=== PATIENT | male | born 1955 | race Caucasian/White ===

== ENCOUNTER 2016-12-13 09:07 | Day surgery (SDC) | payer OTHER ==
[~2016-12-13] VITALS: Ht 182.9 cm; Wt 91.8 kg
[~2016-12-13 09:07] MED LIST: AMIT10TA6 PO; ATOR40TA28 PO; LACT10SO75 PO; METO-296 PO; OMEP20 PO; RINGERS SOLUTION,LACTATED 500 ML IV ONE; SUCR1ORA5 PO; VITAD50000 PO
[2016-12-13] MEDS ORDERED: TETRACAINE HCL/PF 0.5% 4 ML OPHTHALMIC SOLUTION OD ONE (09:15)
[2016-12-13] MEDS ORDERED: CYCLOPENTOLATE HCL 2% 2 ML OPHTHALMIC SOLUTION ONE (09:20)
[2016-12-13] MEDS ORDERED: TETRACAINE HCL/PF 0.5% 4 ML OPHTHALMIC SOLUTION ONE (09:20)
[2016-12-13] MEDS ORDERED: DICLOFENAC SODIUM 0.1% 2.5 ML OPHTHALMIC SOLUTION ONE (09:20)
[2016-12-13] MEDS ORDERED: RINGERS SOLUTION,LACTATED 500 ML IV ONE (09:21)
[2016-12-13] MEDS ORDERED: PHENYLEPHRINE HCL 2.5% 2 ML OPHTHALMIC SOLUTION ONE (09:21)
[2016-12-13] MEDS ORDERED: MOXIFLOXACIN HCL 0.5% 3 ML OPHTHALMIC SOLUTION ONE (09:21)
[2016-12-13] MEDS: MOXIFLOXACIN HCL 0.5% 3 ML OPHTHALMIC SOLUTION OD SCH ×3 (09:52→10:15)
[2016-12-13] MEDS: PHENYLEPHRINE HCL 2.5% 2 ML OPHTHALMIC SOLUTION OD SCH ×3 (09:52→10:07)
[2016-12-13] MEDS: CYCLOPENTOLATE HCL 2% 2 ML OPHTHALMIC SOLUTION OD SCH ×3 (09:52→10:07)
[2016-12-13] MEDS: DICLOFENAC SODIUM 0.1% 2.5 ML OPHTHALMIC SOLUTION OD SCH ×3 (09:53→10:15)
[2016-12-13] MEDS ORDERED: ACETAMINOPHEN/CODEINE 300-30 MG TABLET PO PRN (11:15)
[2016-12-13] MEDS ORDERED: AcetaZOLAMIDE 250 MG TABLET PO ONE (11:15)
[2016-12-13] MEDS ORDERED: AcetaZOLAMIDE 250 MG TABLET ONE (11:56)
[2016-12-13] MEDS ORDERED: MIDAZOLAM HCL 2 MG/2 ML VIAL IVP ONE (12:00)
[2016-12-13] MEDS ORDERED: FentaNYL CITRATE-PF 100 MCG/2 ML VIAL IVP ONE (12:00)
== END 2016-12-13 12:25 | disposition home or self-care (01) ==
LOC: SURGERY 09:07
PROVIDERS: ATTEND Ophthalmology
DX: H25.11 Age-related nuclear cataract, right eye (principal); M54.9 Dorsalgia, unspecified; H40.9 Unspecified glaucoma; Z90.49 Acquired absence of other specified parts of digestive tract; Z86.19 Personal history of other infectious and parasitic diseases
CPT/HCPCS: 66984; 93005; C1780; J2250; J3010; J7120

== ENCOUNTER 2017-02-14 08:09 | Day surgery (SDC) | payer OTHER ==
[~2017-02-14] VITALS: Ht 177.8 cm; Wt 94.1 kg
[~2017-02-14 08:09] MED LIST changes: +ACETAMINOPHEN/CODEINE 300-30 MG TABLET PO PRN; +CYCLOPENTOLATE HCL 2% 2 ML OPHTHALMIC SOLUTION ONE; +DICLOFENAC SODIUM 0.1% 2.5 ML OPHTHALMIC SOLUTION ONE; +MOXIFLOXACIN HCL 0.5% 3 ML OPHTHALMIC SOLUTION ONE; +PHENYLEPHRINE HCL 2.5% 2 ML OPHTHALMIC SOLUTION ONE; +SUMA25TA9 PO; +TETRACAINE HCL/PF 0.5% 4 ML OPHTHALMIC SOLUTION ONE; +TETRACAINE HCL/PF 0.5% 4 ML OPHTHALMIC SOLUTION OS ONE
[2017-02-14] MEDS ORDERED: MIDAZOLAM HCL 2 MG/2 ML VIAL IVP ONE (08:10)
[2017-02-14] MEDS ORDERED: FentaNYL CITRATE-PF 100 MCG/2 ML VIAL IVP ONE (08:10)
[2017-02-14] MEDS: PHENYLEPHRINE HCL 2.5% 2 ML OPHTHALMIC SOLUTION OS SCH ×3 (08:44→08:55)
[2017-02-14] MEDS: MOXIFLOXACIN HCL 0.5% 3 ML OPHTHALMIC SOLUTION OS SCH ×3 (08:44→09:05)
[2017-02-14] MEDS: DICLOFENAC SODIUM 0.1% 2.5 ML OPHTHALMIC SOLUTION OS SCH ×3 (08:44→09:05)
[2017-02-14] MEDS: CYCLOPENTOLATE HCL 2% 2 ML OPHTHALMIC SOLUTION OS SCH ×3 (08:44→08:55)
[2017-02-14] MEDS ORDERED: AcetaZOLAMIDE 250 MG TABLET PO ONE (09:45)
[2017-02-14] MEDS ORDERED: AcetaZOLAMIDE 250 MG TABLET ONE (10:38)
== END 2017-02-14 10:55 | disposition home or self-care (01) ==
LOC: SURGERY 08:09
PROVIDERS: ATTEND Ophthalmology
DX: H26.9 Unspecified cataract (principal); G43.909 Migraine, unspecified, not intractable, without status migrainosus; E78.00 Pure hypercholesterolemia, unspecified; K21.9 Gastro-esophageal reflux disease without esophagitis
CPT/HCPCS: 66984; 93005; C1780; J2250; J3010; J7120